=== PATIENT | male | born 1970 | race Caucasian/White ===

== ENCOUNTER 2024-03-05 18:41 | Emergency (ER) | payer MEDICAID, SELFPAY ==
[2024-03-05 19:07] VITALS: PULSE 72; RESP 18; O2SAT 98; BMI 23.6
[2024-03-05 19:11] VITALS: BP 151/94; PULSE 72; RESP 18; TEMP 36.9; O2SAT 95
--- NOTE | 2024-03-05 19:38 | EDNOTE_ITS ---
Upper Respiratory Inf. RME/HPI General Chief Complaint: Flu Like Symptoms Stated Complaint: RIB PAIN Time Seen by Provider: 03/05/24 19:09 Source: patient and EMS Arrival date/time: 03/05/24 18:41 Mode of arrival: EMS Limitations: no limitations RME / HPI RME / HPI Narrative: Dr. Mcghee?s Main ED Evaluation: 53-year-old male from [facility] brought in by ambulance sent by who presents to the emergency department for right sided ribcage pain. Patient also reports flu-like symptoms including 3-day history of cough, and rhinorrhea. Patient denies any other associated symptoms or medical complaints. long-term staff report they administered PRN pain medication without improvement of his symptoms. Patient is a current smoker. Related Data Previous Rx's ?Medication ?Instructions ?Recorded hydrochlorothiazide 25 mg tablet 25 mg PO QAM HTN #30 tabs 12/03/22 acetaminophen 500 mg tablet 1,000 mg (2 x 500 mg) PO Q6H PRN 03/05/24 pain 5 days #40 tabs doxycycline monohydrate 100 mg 100 mg PO BID Pneumonia 7 days #14 03/05/24 capsule caps ibuprofen 600 mg tablet 600 mg PO Q6H PRN pain 5 days #20 03/05/24 tabs Allergies Allergy/AdvReac Type Severity Reaction Status Date / Time quetiapine [From Seroquel] Allergy Severe Agitated Verified 11/30/22 17:09 Review of Systems Review of Systems Systems Reviewed: All systems reviewed, normal except as documented Past Medical History Past Medical History NEUROLOGIC: Positive Cerebrovascular Accident; Negative Seizures CARDIAC: Positive Deep Vein Thrombosis and Hypertension; Negative Congestive Heart Failure RESPIRATORY: Negative Chronic Obstructive Pulmonary Disease (COPD) GASTROINTESTINAL: Positive Gall Bladder Disease GENITOURINARY: Negative Renal Disease ENDOCRINE: Negative Diabetes Mellitus Type 1 or Diabetes Mellitus Type 2 PSYCHO/SOCIAL: Positive Recreational Drug Use OTHER HISTORY: Negative Blood Transfusions or Cancer Family History FAMILY HISTORY: Positive Family Cardiac Disorders and Family Cancer Social History SMOKING STATUS: Current some day smoker SECOND HAND EXPOSURE: No ED Exam Narrative Physical exam: GENERAL APPEARANCE: alert and oriented x 4, well-developed, well-nourished, no acute distress VITALS: All vitals were reviewed and the pulse ox is 95% on room air, which is normal according to my interpretation. HEENT: Normocephalic, atraumatic; pupils equal, round, reactive to light; EOMI; mucous membranes pink, moist; oropharynx clear NECK: Supple LUNGS: coarse breath sounds bilaterally; mild tenderness of palpation to the right lateral ribcage HEART: Regular rate, regular rhythm; normal S1, S2; no murmurs ABDOMEN: non distended; normal BS; soft, no tenderness, no guarding, no rebound; no masses, no organomegaly, no hernia BACK: no CVA tenderness EXTREMITIES: atraumatic; no edema NEUROLOGIC: awake; alert and oriented x4; cranial nerves II-XII grossly intact; no focal sensory or motor deficits PSYCHIATRIC: appropriate mood and affect SKIN: warm, dry, normal color; no rashes General Limitations: Present no limitations Course Course Course Narrative: CXR is ordered to aid in determining etiology of cough. Quality Measures none Orders Category Date Time Status Bedside COVID-19 Antigen Test NOW Care 03/05/24 19:38 Completed Bedside Influenza A&B Antigen Test NOW Care 03/05/24 19:38 Completed XR chest 1V portable Stat Exams 03/05/24 19:38 Completed RSV [Respiratory Syncytial Virus Ag] Stat Lab 03/05/24 20:10 Completed Acetaminophen Tab [Tylenol ES Tab] Med 03/05/24 19:39 Discontinued 1,000 mg PO X1 ONE Ibuprofen Tab [Motrin Tab] Med 03/05/24 19:39 Discontinued 600 mg PO X1 ONE Vital Signs Vital signs: Vital Signs Temperature 98.4 F 03/05/24 19:11 Pulse Rate 72 03/05/24 19:11 Respiratory Rate 18 03/05/24 19:11 Blood Pressure 151/94 H 03/05/24 19:11 Pulse Oximetry (%) 95 03/05/24 19:11 Oxygen Delivery Method Room Air 03/05/24 19:11 Upper Respiratory Infection MDM Narrative MDM Narrative:: Scribe Attestation: I, Mandie Newell, am scribing for and in the presence of Dr. Mcghee. Provider Notation: Although this document has been carefully reviewed, there may still be some phonetic and other typographical errors. These errors are purely grammatical due to imperfections in the software program and should not be construed in any way to compromise the substance of the patient's medical care during this visit. Patient data External records reviewed:: [facility] previous records and EMS form Clinical information provided by:: patient and EMS Social determinants that could affect healthcare access:: substance use Patient has the following chronic illnesses:: CVA w/residual left leg weakness, HTN, substance abuse p/w speech trouble, COPD, How is presenting disease/condition affected by chronic disease/condition?: uneffected by Evaluation data The following diagnostics were reviewed and interpreted by me:: lab results and radiology exam(s) Lab and/or radiology exams considered but not ordered:: None Interpretation Summary: CXR shows normal cardiac silhouette, normal sharp diaphragmatic edge, right peribronchial and right lower lobe infiltrates, normal costophrenic angles, according to my interpretation. Medications / Prescriptions Medications or Prescriptions considered but not ordered:: None Medication administrations:: Medication Administration History Discontinued Medications Acetaminophen (Acetaminophen 500 Mg Tablet) 1,000 mg PO X1 ONE Stop: 03/05/24 19:40 Last Admin: 03/05/24 20:02 Dose: 1,000 mg Documented By: ROMEL Ibuprofen (Ibuprofen Tab 600 Mg Tablet) 600 mg PO X1 ONE Stop: 03/05/24 19:40 Last Admin: 03/05/24 20:02 Dose: 600 mg Documented By: ROMEL As above Consultations Consultation(s) initiated? (list below): No Diagnosis Upper Respiratory Differential Diagnosis: other (Bacterial PNA vs pleurisy vs pneumothorax vs viral pneumonitis vs viral PNA) Most likely diagnosis given after review of the tests above:: See clinical impression below Admission Indicated Admission indicated?: not indicated Admission Request Was there a request for admission?: No Disposition Plan Disposition Plan: Discharge Discharge Attestation Discharge Attestation: The patient and all family members were given an opportunity to ask questions and understood the discharge instructions. Discharge instructions specifically effects, indications for sooner follow up or return to the emergency department, and the expected course of current diagnosis. Patient condition: Stable Discharge Plan Plan Patient Disposition: Xfer Skilled Nsg Fac (SNF) Disposition Comment: Stable for discharge Patient condition on transfer: Stable Prescriptions/Referrals Prescriptions/Med Rec: New doxycycline monohydrate 100 mg capsule 100 mg PO BID 7 Days Qty: 14 0RF acetaminophen 500 mg tablet 1,000 mg PO Q6H PRN (Reason: pain) 5 Days Qty: 40 0RF ibuprofen 600 mg tablet 600 mg PO Q6H PRN (Reason: pain) 5 Days Qty: 20 0RF No Action hydrochlorothiazide 25 mg tablet 25 mg PO QAM Qty: 30 0RF Referrals: [facility] [Provider Group] - In 1 week [facility] [Outside] - In 1 week Problem List Clinical Impression: Pneumonia Patient/Caregiver Discharge Instructions Discharge Activity: activity as tolerated Education Materials: What Is Pneumonia?, ED Pneumonia (Adult) Additional Instructions: You should follow-up with your primary care doctor, [facility] or in the [facility] within the next several days. If you are not improving within 48 hours or if you are worsening in any way please return to the emergency department and we will help you Today your chest x-ray showed that you have a right-sided pneumonia. This is probably why you are having pain in that area and why you are coughing so much. The good news is that you are able to breathe properly and that your oxygen level has not dropped because of this, your heart rate has not increased and you are not particularly short of breath. If any of this changes please return to the ER Print Language: Cameroonian Stand Alone Forms: [employer] Award Info., Patient Portal Info Letter
--- NOTE | 2024-03-05 19:38 | XR_ITS ---
Examination: AP chest single view Technique one AP portable upright chest single view Exam date and time: March 05, 2024 1944 hrs. Comparison 11/16/2022 Indications: Chest pain on the right side today coughing Findings: Early right perihilar right basilar pneumonia Normal heart size The osseous structures are demineralized Impression: Early right perihilar right basilar pneumonia
[2024-03-05] MEDS: IBUPROFEN TAB 600 MG TABLET PO (20:02)
[2024-03-05] MEDS: ACETAMINOPHEN 500 MG TABLET 1000 MG PO (20:02)
[2024-03-05 20:44] LABS: Respiratory Syncytial Virus Ag Negative (Negative)
[2024-03-05 21:30] VITALS: BP 119/74; PULSE 64; RESP 19; TEMP 37.3; O2SAT 92
[2024-03-05 22:02] VITALS: BP 133/85; PULSE 65; RESP 18; O2SAT 99
== END 2024-03-05 22:03 | disposition skilled nursing facility (03) ==
LOC: SERX 20:20
PROVIDERS: Emergency Provider Emergency Medicine; PCP Family Medicine
DX: J18.9 Pneumonia, unspecified organism (principal); F17.200 Nicotine dependence, unspecified, uncomplicated
CPT/HCPCS: 71045; 87400; 87634; 87811; 99283; A9270